=== PATIENT | female | born 1990 | race Hispanic/Latino ===

== ENCOUNTER 2024-03-27 22:17 | Emergency (ER) | payer SELFPAY ==
[2024-03-27 23:14] LABS: Bilirubin Neg (Negative); Blood, Urine Negative (Negative); Clarity Clear (Clear); Glucose, Urine (Dipstick) Normal (Negative); Ketone, Urine Negative (Negative); Leukocyte 25 (Negative); Nitrite Negative (Negative); Protein, Urine (Dipstick) Negative (Neg-Trace); Specific Gravity, Urine 1.015 (1.005-1.030); Urobilinogen Normal mg/dL (Less than 2)
[2024-03-27 23:16] LABS: Pregnancy Test - Urine (BHCG) Negative (Negative)
[2024-03-27 23:17] LABS: Pregu Control Background? CLEAR/WHITE (CLR/WHITE); Pregu Control Bar Appear? YES (CONTROL BAR); Specific Gravity 1.015 (1.002-1.036)
[2024-03-27 23:32] LABS: Bacteria/HPF 2+ HPF (None Seen); CAUTI Indications for Culture Pelvic or flank pain; RBC/HPF 0-3 HPF (0-3)
[2024-03-27 23:34] LABS: Urine Culture Reflex No No
== END 2024-03-28 00:13 | disposition home or self-care (01) ==
LOC: CSHERS 22:17
DX: M54.6 Pain in thoracic spine (principal)
CPT/HCPCS: 81001; 81025; 99283